=== PATIENT | male | born 1995 | race Caucasian/White ===

== ENCOUNTER 2016-09-23 22:32 | Emergency (ER) | payer OTHER ==
[~2016-09-23] VITALS: Ht 180.3 cm; Wt 102.1 kg
[~2016-09-23 22:32] MED LIST: ATARAX,VISTARIL50 MG PO; ATIVAN1 MG PO; BENTYL10 MG PO; DULOXETINE HCL30 MG PO; KEFLEX500 MG PO; LOMOTIL 0.025 M1 TA1 PO; LOPERAMIDE2 MG PO; MOTRIN600 MG PO; PANTOPRAZOLE SO20 MG PO; PAXIL CR25 MG PO; PAXIL20 M1 PO; PEPCID40 MG PO; PRILOSEC20 M1 PO; PROTONIX20 MG PO; TENORMIN25 M1 PO; TENORMIN25 MG PO; TOPROL XL25 MG PO; TRAZODONE100 MG PO; VISTARIL25 M2 PO; VISTARIL50 MG PO; XANAX0.25 MG PO; ZANTAC 300300 MG PO; ZANTAC150 MG PO; ZOFRAN ODT4 MG SL; Zofran4 MG PO; [UNRECOGNIZED DRUG - REMARK]
[2016-09-23 22:35] VITALS: BP 146/82
[2016-09-23] MEDS ORDERED: ATIVAN1 MG PO (22:56)
[2016-10-17] MEDS ORDERED: CLARITIN10 MG PO (16:44)
[2016-10-17] MEDS ORDERED: FLONASE ALLERG9.9 ML NAS (16:44)
[2016-10-17] MEDS ORDERED: ROBITUSSIN AC 110 ML PO (16:44)
[2016-10-17] MEDS ORDERED: PREDNISONE10 MG PO (16:44)
== END 2016-09-23 23:06 | disposition home or self-care (01) ==
LOC: ED 22:32
DX: F41.0 Panic disorder [episodic paroxysmal anxiety] (principal); I10 Essential (primary) hypertension; I47.1 Supraventricular tachycardia; F17.200 Nicotine dependence, unspecified, uncomplicated; F12.10 Cannabis abuse, uncomplicated; Z90.49 Acquired absence of other specified parts of digestive tract

== ENCOUNTER → 2017-08-18 | Outpatient (CLI) | payer OTHER ==
[~2017-08-18] MED LIST changes: +CLARITIN10 MG PO; +FLONASE ALLERG9.9 ML NAS; +PREDNISONE10 MG PO; +ROBITUSSIN AC 110 ML PO
--- NOTE | ~2017-08-18 | HM ---
[place], [place] HOLTER MONITOR REPORT NAME: SALLY AGUILA UNIT #: [id number] ROOM: DOCTOR: BIJU MARMOLEJO [facility] BIRTHDATE: [birth year] DOS: 08/21/2017 FINDINGS: 1. Sinus rhythm. 2. Sinus tachycardia. 3. Sinus bradycardia, but bradycardia is not consistent and no critical symptoms noted during the short episodes of bradycardia, but no conduction abnormalities noted. No extreme variation noted. Holter monitor appears to have fairly benign. However, there was episode of sinus bradycardia, not associated with any significant symptoms. He had one episode of the dizziness while working out as the bradycardia rate of 40 and if the symptoms persist and further documentation may be needed and the consideration also may be given for a loop recorder for further documentation. We will follow the patient in the office. HAZEL IVY MD CM:HOLTER:HOLTER MONITOR REPORT 1 4 HAZEL IVY MD [facility]
== END | disposition home or self-care (01) ==
LOC: CARD 10:00
DX: R00.2 Palpitations (principal); R00.0 Tachycardia, unspecified

== ENCOUNTER → 2018-02-26 | Outpatient (CLI) | payer OTHER ==
[~2018-02-26] MED LIST changes: +CATAPRES0.2 M1 PO; +KEFLEX500 M1 PO; +NAPROSYN500 MG PO; +SINEQUAN25 MG PO; +WELLBUTRIN SR150 MG PO; +ZOFRAN4 MG PO
--- NOTE | ~2018-02-26 | ST ---
[place], [place] EXERCISE STRESS TEST REPORT NAME: SALLY AGUILA UNIT #: [id number] ROOM: DOCTOR: BIJU MARMOLEJO [facility]EL BIRTHDATE: [birth year] DOS: 02/26/2018 The patient underwent a stress test on stage 4 Umesh protocol up to 14 METs and up to 90% predicted heart rate of 167. No ischemic changes in the EKG. No complication noted. Isotope was injected. Exercised for a minute after injecting the isotope and myocardial perfusion scan to follow. No electrolyte changes for myocardial ischemia noted. HAZEL IVY MD CM:STRESS:EXERCISE STRESS TEST REPORT [id number] HAZEL IVY MD [facility]
== END | disposition home or self-care (01) ==
LOC: CARD 00:35
DX: R07.9 Chest pain, unspecified (principal)

== ENCOUNTER 2018-03-23 17:26 | Emergency (ER) | payer OTHER ==
[~2018-03-23] VITALS: Ht 182.8 cm; Wt 103.4 kg
[~2018-03-23 17:26] MED LIST changes: -KEFLEX500 M1 PO; -NAPROSYN500 MG PO; -ZOFRAN4 MG PO
[2018-03-23 17:28] VITALS: BP 136/58
[2018-03-23] MEDS ORDERED: KEFLEX500 M1 PO (17:37)
[2018-03-23] MEDS ORDERED: ZOFRAN4 MG PO (17:37)
[2018-03-23] MEDS ORDERED: NAPROSYN500 MG PO (17:37)
== END 2018-03-23 17:44 | disposition home or self-care (01) ==
LOC: ED 17:26
DX: Z48.01 Encounter for change or removal of surgical wound dressing (principal); R03.0 Elevated blood-pressure reading, without diagnosis of hypertension; F17.200 Nicotine dependence, unspecified, uncomplicated; Z79.899 Other long term (current) drug therapy; Z86.14 Personal history of Methicillin resistant Staphylococcus aureus infection

== ENCOUNTER 2019-05-16 11:41 | Emergency (ER) | payer OTHER ==
[~2019-05-16] VITALS: Wt 104.3 kg
[~2019-05-16 11:41] MED LIST changes: +KEFLEX500 M1 PO; +NAPROSYN500 MG PO; +ZOFRAN4 MG PO
[2019-05-16 11:43] VITALS: BP 126/77
[2019-05-16] MEDS ORDERED: NORCO 5-325 TA1 EACH PO (13:26)
[2019-05-16] MEDS ORDERED: ULTRAM50 MG PO (13:31)
== END 2019-05-16 14:41 | disposition home or self-care (01) ==
LOC: ED 11:41
DX: S62.396A Other fracture of fifth metacarpal bone, right hand, initial encounter for closed fracture (principal); F17.200 Nicotine dependence, unspecified, uncomplicated; Z79.899 Other long term (current) drug therapy; Z90.49 Acquired absence of other specified parts of digestive tract; V00.131A Fall from skateboard, initial encounter; Y93.51 Activity, roller skating (inline) and skateboarding; Y92.89 Other specified places as the place of occurrence of the external cause; Y99.8 Other external cause status

== ENCOUNTER → 2019-07-30 | Outpatient (CLI) | payer OTHER ==
[~2019-07-30] MED LIST changes: +NORCO 5-325 TA1 EACH PO; +ULTRAM50 MG PO
== END | disposition home or self-care (01) ==
LOC: RAD 13:05
DX: M25.561 Pain in right knee (principal)

== ENCOUNTER 2019-11-16 19:38 | Emergency (ER) | payer OTHER ==
[~2019-11-16] VITALS: Ht 154.9 cm; Wt 95.3 kg
[2019-11-16 19:44] VITALS: BP 111/64
[2019-11-16 20:09] LABS: BASO # 0.1 10*3/uL (0.0-0.1); BASO % 0.6 % (0.0-1.0); EOS # 0.1 10*3/uL (0.0-0.4); EOS % 0.8 % (1.0-4.0); HEMATOCRIT 49.2 % (42.0-52.0); HEMOGLOBIN 17.6 g/dl (14.0-18.0); LYMPH # 2.1 10*3/uL (1.3-4.4); LYMPH % 24.5 % (27.0-41.0); MEAN CELL VOLUME 87.1 fl (80.0-94.0); MEAN CORPUSCULAR HGB 31.2 pg (27.0-31.0); MEAN CORPUSCULAR HGB CONC 35.8 g/dl (33.0-37.0); MEAN PLATELET VOLUME 11.9 fl (9.6-12.3); MONO # 0.6 10*3/uL (0.1-1.0); MONO % 7.1 % (3.0-9.0); NEUT # 5.7 10*3/uL (2.3-7.9); NEUT % 66.8 % (47.0-73.0); PLATELET COUNT AUTOMATED 182 10*3/uL (130-400); RED BLOOD COUNT 5.65 10*6/uL (4.50-5.90); WHITE BLOOD COUNT 8.5 10*3/uL (4.8-10.8)
[2019-11-16 20:26] LABS: ALBUMIN 4.6 gm/dl (3.1-4.5); ALKALINE PHOSPHATASE 88 U/L (45-117); BUN 12 mg/dl (7-24); CHLORIDE 106 mmol/L (98-107); CREATININE 1.08 mg/dL (0.70-1.30); POTASSIUM 3.3 mmol/L (3.5-5.1); SGOT/AST 17 IU/L (3-35); SGPT/ALT 25 U/L (12-78); SODIUM 138 mmol/L (136-145); TOTAL PROTEIN 7.8 gm/dL (6.4-8.2)
[2019-11-16 20:27] LABS: ACETAMINOPHEN (TYLENOL) < 5.0 ug/ml (10-30); ETHYL ALCOHOL < 3.0 mg/dl (<3); TROPONIN I < 0.015 ng/ml (<0.045)
[2019-11-16 21:48] LABS: BILIRUBIN NEGATIVE (NEGATIVE); BLOOD TRACE-INTACT (NEGATIVE); CLARITY CLEAR (CLEAR); COLOR YELLOW (YELLOW); GLUCOSE NEGATIVE (NEGATIVE); KETONE 1+ (NEGATIVE); LEUKO ESTERASE TRACE (NEGATIVE); NITRITE NEGATIVE (NEGATIVE); SPECIFIC GRAVITY 1.025 (1.005-1.030); UROBILINOGEN 0.2 E.U./dl (0.2-1.0)
[2019-11-16 21:55] LABS: URINE AMPHETAMINES < 1000 (1000ng/ml); URINE BARBITURATES < 200 (200ng/ml); URINE BENZODIAZEPINES < 200 (200ng/ml); URINE CANNABINOIDS (THC) > 50 (50ng/ml); URINE COCAINE < 300 (300ng/ml); URINE METHADONE < 300 (300ng/ml); URINE OPIATES < 300 (300ng/ml)
[2019-11-16 22:00] LABS: URINE PHENCYCLIDINE < 25 (25ng/ml)
[2019-11-16 22:12] LABS: BACTERIA 1+; MUCOUS 4+
== END 2019-11-16 23:32 | disposition home or self-care (01) ==
LOC: ED 19:38
PROVIDERS: Nurse Practitioner Family
DX: F41.9 Anxiety disorder, unspecified (principal); R11.2 Nausea with vomiting, unspecified; K21.9 Gastro-esophageal reflux disease without esophagitis; F32.9 Major depressive disorder, single episode, unspecified; F17.200 Nicotine dependence, unspecified, uncomplicated; Z79.899 Other long term (current) drug therapy

== ENCOUNTER 2019-11-17 18:35 | Emergency (ER) | payer OTHER ==
[~2019-11-17] VITALS: Ht 180.3 cm; Wt 93.4 kg
[2019-11-17 19:04] VITALS: BP 110/66
[2019-11-17 19:42] LABS: BASO % 0.5 % (0.0-1.0); EOS # 0.1 10*3/uL (0.0-0.4); EOS % 1.2 % (1.0-4.0); HEMATOCRIT 45.7 % (42.0-52.0); LYMPH # 2.7 10*3/uL (1.3-4.4); LYMPH % 33.5 % (27.0-41.0); MEAN CELL VOLUME 88.7 fl (80.0-94.0); MEAN CORPUSCULAR HGB 31.1 pg (27.0-31.0); MEAN PLATELET VOLUME 12.3 fl (9.6-12.3); MONO # 0.7 10*3/uL (0.1-1.0); MONO % 8.7 % (3.0-9.0); NEUT # 4.5 10*3/uL (2.3-7.9); PLATELET COUNT AUTOMATED 153 10*3/uL (130-400); RED BLOOD COUNT 5.15 10*6/uL (4.50-5.90); RED CELL DISTRI WIDTH 12.3 % (0-14.5)
[2019-11-17 19:59] LABS: ALBUMIN 4.1 gm/dl (3.1-4.5); ALKALINE PHOSPHATASE 75 U/L (45-117); BUN 12 mg/dl (7-24); CHLORIDE 109 mmol/L (98-107); CREATININE 1.09 mg/dL (0.70-1.30); LIPASE 66 U/L (73-393); POTASSIUM 3.4 mmol/L (3.5-5.1); SGOT/AST 12 IU/L (3-35); SGPT/ALT 24 U/L (12-78); SODIUM 142 mmol/L (136-145); TOTAL PROTEIN 7.2 gm/dL (6.4-8.2)
== END 2019-11-17 22:00 | disposition home or self-care (01) ==
LOC: ED 18:35
PROVIDERS: Internal Medicine
DX: K52.9 Noninfective gastroenteritis and colitis, unspecified (principal); F41.9 Anxiety disorder, unspecified; I10 Essential (primary) hypertension; F17.200 Nicotine dependence, unspecified, uncomplicated; K21.9 Gastro-esophageal reflux disease without esophagitis; F32.9 Major depressive disorder, single episode, unspecified; Z79.899 Other long term (current) drug therapy; Z90.49 Acquired absence of other specified parts of digestive tract

== ENCOUNTER 2020-03-03 08:22 | Emergency (ER) | payer OTHER ==
[~2020-03-03] VITALS: Ht 177.8 cm; Wt 85.3 kg
[2020-03-03 08:32] VITALS: BP 112/68
[2020-03-03 09:00] LABS: BASO % 0.3 % (0.0-1.0); EOS # 0.1 10*3/uL (0.0-0.4); EOS % 1.2 % (1.0-4.0); HEMATOCRIT 46.9 % (42.0-52.0); LYMPH # 1.6 10*3/uL (1.3-4.4); LYMPH % 17.7 % (27.0-41.0); MEAN CELL VOLUME 88.7 fl (80.0-94.0); MEAN CORPUSCULAR HGB 30.8 pg (27.0-31.0); MEAN CORPUSCULAR HGB CONC 34.8 g/dl (33.0-37.0); MEAN PLATELET VOLUME 12.1 fl (9.6-12.3); MONO # 0.4 10*3/uL (0.1-1.0); MONO % 4.9 % (3.0-9.0); NEUT # 6.7 10*3/uL (2.3-7.9); NEUT % 75.6 % (47.0-73.0); PLATELET COUNT AUTOMATED 161 10*3/uL (130-400); RED BLOOD COUNT 5.29 10*6/uL (4.50-5.90); RED CELL DISTRI WIDTH 12.5 % (0-14.5); WHITE BLOOD COUNT 8.9 10*3/uL (4.8-10.8)
[2020-03-03 09:14] LABS: ALBUMIN 4.3 gm/dl (3.1-4.5); ALKALINE PHOSPHATASE 98 U/L (45-117); BUN 9 mg/dl (7-24); CHLORIDE 110 mmol/L (98-107); CREATININE 1.05 mg/dL (0.70-1.30); LIPASE 35 U/L (73-393); POTASSIUM 3.6 mmol/L (3.5-5.1); SGOT/AST 15 IU/L (3-35); SGPT/ALT 21 U/L (12-78); SODIUM 141 mmol/L (136-145); TOTAL PROTEIN 7.5 gm/dL (6.4-8.2)
[2020-03-03] MEDS ORDERED: ZOFRAN4 MG PO (10:06)
[2020-03-03] MEDS ORDERED: IMODIUM A-D2 M2 PO (10:06)
[2020-03-03] MEDS ORDERED: VISTARIL50 MG PO (16:18)
[2020-03-03] MEDS ORDERED: TOPROL XL25 MG PO (16:18)
[2020-03-03] MEDS ORDERED: NEURONTIN300 MG PO (16:19)
[2020-03-03] MEDS ORDERED: ATIVAN1 MG PO (16:19)
[2020-03-03] MEDS ORDERED: LAMOTRIGINE25 M1 PO (16:20)
== END 2020-03-03 10:16 | disposition home or self-care (01) ==
LOC: ED 08:22
PROVIDERS: Emergency Medicine
DX: K52.9 Noninfective gastroenteritis and colitis, unspecified (principal); F41.9 Anxiety disorder, unspecified; F32.9 Major depressive disorder, single episode, unspecified; K21.9 Gastro-esophageal reflux disease without esophagitis; F17.200 Nicotine dependence, unspecified, uncomplicated; Z79.899 Other long term (current) drug therapy

== ENCOUNTER 2020-03-03 16:09 | Emergency (ER) | payer OTHER ==
[~2020-03-03] VITALS: Ht 177.8 cm; Wt 85.3 kg
[~2020-03-03 16:09] MED LIST changes: +IMODIUM A-D2 M2 PO
[2020-03-03 16:15] VITALS: BP 125/71
[2020-03-03] MEDS ORDERED: VISTARIL50 MG PO (16:18)
[2020-03-03] MEDS ORDERED: TOPROL XL25 MG PO (16:18)
[2020-03-03] MEDS ORDERED: NEURONTIN300 MG PO (16:19)
[2020-03-03] MEDS ORDERED: ATIVAN1 MG PO (16:19)
[2020-03-03] MEDS ORDERED: LAMOTRIGINE25 M1 PO (16:20)
== END 2020-03-03 20:20 | disposition home or self-care (01) ==
LOC: ED 16:09
DX: K52.9 Noninfective gastroenteritis and colitis, unspecified (principal); F41.9 Anxiety disorder, unspecified; I10 Essential (primary) hypertension; K21.9 Gastro-esophageal reflux disease without esophagitis; F32.9 Major depressive disorder, single episode, unspecified; Z79.899 Other long term (current) drug therapy

== ENCOUNTER 2020-03-06 12:47 | Emergency (ER) | payer OTHER ==
[~2020-03-06] VITALS: Wt 83.5 kg
[~2020-03-06 12:47] MED LIST changes: +LAMOTRIGINE25 M1 PO; +NEURONTIN300 MG PO
[2020-03-06 12:52] VITALS: BP 120/64
[2020-03-06 13:26] LABS: BASO % 0.5 % (0.0-1.0); EOS # 0.1 10*3/uL (0.0-0.4); EOS % 1.1 % (1.0-4.0); HEMATOCRIT 45.1 % (42.0-52.0); LYMPH # 1.8 10*3/uL (1.3-4.4); LYMPH % 28.9 % (27.0-41.0); MEAN CELL VOLUME 89.3 fl (80.0-94.0); MEAN CORPUSCULAR HGB 30.5 pg (27.0-31.0); MEAN CORPUSCULAR HGB CONC 34.1 g/dl (33.0-37.0); MEAN PLATELET VOLUME 12.4 fl (9.6-12.3); MONO # 0.5 10*3/uL (0.1-1.0); MONO % 7.4 % (3.0-9.0); NEUT # 3.9 10*3/uL (2.3-7.9); NEUT % 61.8 % (47.0-73.0); PLATELET COUNT AUTOMATED 146 10*3/uL (130-400); RED BLOOD COUNT 5.05 10*6/uL (4.50-5.90); RED CELL DISTRI WIDTH 12.3 % (0-14.5); WHITE BLOOD COUNT 6.4 10*3/uL (4.8-10.8)
[2020-03-06 13:36] LABS: BILIRUBIN NEGATIVE (NEGATIVE); CLARITY CLEAR (CLEAR); COLOR YELLOW (YELLOW); GLUCOSE NEGATIVE (NEGATIVE); SPECIFIC GRAVITY 1.015 (1.005-1.030)
[2020-03-06 13:37] LABS: BACTERIA 1+; BLOOD TRACE-INTACT (NEGATIVE); EPITHELIAL CELLS 0-2; KETONE 3+ (NEGATIVE); LEUKO ESTERASE NEGATIVE (NEGATIVE); MUCOUS 2+; NITRITE NEGATIVE (NEGATIVE)
[2020-03-06 13:41] LABS: ALBUMIN 4.1 gm/dl (3.1-4.5); ALKALINE PHOSPHATASE 104 U/L (45-117); BUN 6 mg/dl (7-24); CHLORIDE 108 mmol/L (98-107); CREATININE 0.93 mg/dL (0.70-1.30); LIPASE 38 U/L (73-393); POTASSIUM 3.5 mmol/L (3.5-5.1); SGOT/AST 31 IU/L (3-35); SGPT/ALT 80 U/L (12-78); SODIUM 142 mmol/L (136-145)
[2020-03-06] MEDS ORDERED: ZOFRAN4 MG PO (15:55)
[2020-03-06] MEDS ORDERED: PROTONIX20 MG PO (15:55)
[2020-03-06] MEDS ORDERED: FLAGYL500 MG PO (15:55)
== END 2020-03-06 16:08 | disposition home or self-care (01) ==
LOC: ED 12:47
PROVIDERS: Nurse Practitioner Family
DX: K29.70 Gastritis, unspecified, without bleeding (principal); K52.9 Noninfective gastroenteritis and colitis, unspecified; K21.9 Gastro-esophageal reflux disease without esophagitis; R11.10 Vomiting, unspecified; Z79.899 Other long term (current) drug therapy; Z87.891 Personal history of nicotine dependence

== ENCOUNTER 2020-03-07 18:15 | Observation (INO) | payer OTHER ==
[~2020-03-07] VITALS: Ht 177.8 cm; Wt 84.5 kg
[~2020-03-07 18:15] MED LIST changes: +FLAGYL500 MG PO
[2020-03-07 18:23] VITALS: BP 123/55
[2020-03-07 19:38] LABS: BASO # 0.1 10*3/uL (0.0-0.1); BASO % 0.7 % (0.0-1.0); EOS # 0.2 10*3/uL (0.0-0.4); EOS % 2.3 % (1.0-4.0); HEMATOCRIT 41.9 % (42.0-52.0); LYMPH # 2.1 10*3/uL (1.3-4.4); LYMPH % 29.4 % (27.0-41.0); MEAN CELL VOLUME 89.9 fl (80.0-94.0); MEAN CORPUSCULAR HGB 31.1 pg (27.0-31.0); MEAN CORPUSCULAR HGB CONC 34.6 g/dl (33.0-37.0); MEAN PLATELET VOLUME 12.4 fl (9.6-12.3); MONO # 0.6 10*3/uL (0.1-1.0); MONO % 8.4 % (3.0-9.0); NEUT # 4.2 10*3/uL (2.3-7.9); NEUT % 59.1 % (47.0-73.0); PLATELET COUNT AUTOMATED 134 10*3/uL (130-400); RED BLOOD COUNT 4.66 10*6/uL (4.50-5.90); RED CELL DISTRI WIDTH 12.2 % (0-14.5); WHITE BLOOD COUNT 7.1 10*3/uL (4.8-10.8)
[2020-03-07 19:53] LABS: ALBUMIN 3.7 gm/dl (3.1-4.5); ALKALINE PHOSPHATASE 86 U/L (45-117); BUN 9 mg/dl (7-24); CHLORIDE 110 mmol/L (98-107); CREATININE 0.87 mg/dL (0.70-1.30); LIPASE 70 U/L (73-393); POTASSIUM 3.3 mmol/L (3.5-5.1); SGOT/AST 15 IU/L (3-35); SGPT/ALT 54 U/L (12-78); SODIUM 141 mmol/L (136-145); TOTAL PROTEIN 6.4 gm/dL (6.4-8.2)
--- NOTE | 2020-03-07 20:12 | NUR ---
PAIN IS BETTER AFTER REGLAN AND PROTONIX. WILL CONTINUE TO MONITOR.
[2020-03-07 20:27] VITALS: BP 115/60
--- NOTE | 2020-03-07 21:47 | NUR ---
PAIN HAS RETURNED. DR PEREZ AWARE.
[2020-03-07 23:25] VITALS: BP 106/52
[2020-03-07 23:35] LABS: BILIRUBIN NEGATIVE (NEGATIVE); BLOOD NEGATIVE (NEGATIVE); CLARITY CLEAR (CLEAR); COLOR YELLOW (YELLOW); GLUCOSE NEGATIVE (NEGATIVE); KETONE 2+ (NEGATIVE); LEUKO ESTERASE NEGATIVE (NEGATIVE); NITRITE NEGATIVE (NEGATIVE); PH 7.5 (5.0-9.0); UROBILINOGEN 0.2 E.U./dl (0.2-1.0)
[2020-03-07 23:45] VITALS: BP 126/69
--- NOTE | 2020-03-07 23:45 | NUR ---
A 25, admitted to , under the services of CHUNG Rosen DO with a diagnosis of INTRACTABLE VOMITING,DEHYDRATION PATIENT IS AN OBSERVATION. Chief complaint is FOR 5 DAYS HAS HAD N/V/ DIARRHEA. Patient arrived via wheel chair from ER. Monitor applied. Initial assessment completed. Vital signs taken and recorded. CHUNG ROSEN DO notified of admission to the 4E unit. Orders received. See assessment for past medical history, medications and allergies. Patient and/or family oriented to unit. [facility] visitation policy reviewed. Clothing/patient valuable form completed. JOHNSON GUTIERREZ
[2020-03-07 23:49] LABS: EPITHELIAL CELLS 31-40
[2020-03-07 23:50] LABS: BACTERIA 1+
[2020-03-08 02:35] VITALS: BP 112/70
--- NOTE | 2020-03-08 02:35 | NUR ---
C/O SHIVERING BECAUSE ROOM COLD AND IT'S "MAKING MY CHEST HURT" VITAL SIGNS TAKEN AND RECORDED. HEAT TURNED UP IN ROOM WITH WARM BLANKETS COVERED PATIENT. PATIENT SAID PAIN FELT MORE MUSCLE IN CHEST THAN HEART".
--- NOTE | 2020-03-08 02:40 | NUR ---
ATIVAN GIVEN PER ORDER FOR ANXIETY PER PT. REQUEST. SEE MAR.
--- NOTE | 2020-03-08 02:43 | NUR ---
C/O NAUSEA ZOFRAN GIVEN PER ORDER. SEE MAR
--- NOTE | 2020-03-08 03:40 | NUR ---
SLEEPING ATIVAN AND ZOFRAN EFFECTIVE FOR ANXIETY AND NAUSEA.
--- NOTE | 2020-03-08 03:49 | NUR ---
24 HR chart check completed.
[2020-03-08 06:19] LABS: BASO % 0.4 % (0.0-1.0); EOS # 0.1 10*3/uL (0.0-0.4); EOS % 1.4 % (1.0-4.0); HEMATOCRIT 39.5 % (42.0-52.0); LYMPH # 1.6 10*3/uL (1.3-4.4); LYMPH % 27.3 % (27.0-41.0); MEAN CELL VOLUME 91.6 fl (80.0-94.0); MEAN CORPUSCULAR HGB 30.6 pg (27.0-31.0); MEAN CORPUSCULAR HGB CONC 33.4 g/dl (33.0-37.0); MEAN PLATELET VOLUME 12.9 fl (9.6-12.3); MONO # 0.4 10*3/uL (0.1-1.0); MONO % 7.4 % (3.0-9.0); NEUT # 3.6 10*3/uL (2.3-7.9); NEUT % 63.3 % (47.0-73.0); PLATELET COUNT AUTOMATED 116 10*3/uL (130-400); RED BLOOD COUNT 4.31 10*6/uL (4.50-5.90); RED CELL DISTRI WIDTH 12.5 % (0-14.5); WHITE BLOOD COUNT 5.7 10*3/uL (4.8-10.8)
--- NOTE | 2020-03-08 06:26 | NUR ---
awake had mouthful emesis with cough clear with few very thin red flecks noted. No c/o chest pain voiced at this time.
[2020-03-08 06:37] LABS: ALBUMIN 3.3 gm/dl (3.1-4.5); ALKALINE PHOSPHATASE 80 U/L (45-117); BUN 8 mg/dl (7-24); CHLORIDE 112 mmol/L (98-107); CREATININE 0.83 mg/dL (0.70-1.30); POTASSIUM 3.7 mmol/L (3.5-5.1); SGOT/AST 15 IU/L (3-35); SGPT/ALT 46 U/L (12-78); SODIUM 144 mmol/L (136-145); TOTAL PROTEIN 5.8 gm/dL (6.4-8.2)
[2020-03-08 08:00] VITALS: BP 110/66
--- NOTE | 2020-03-08 09:00 | NUR ---
Director Of Emergency Nursing in to talk to patient. Patient states lives at home with family. There are no steps in the home. Physician: soraida bello [facility]acy: [facility] Home health services: none Patient's level of ADLs: INDEPENDENT Patient has working utilities: all working DME: none Follow-up physician's appointment after d/c: will be made by hospitalist nurse director upon discharge Does patient want to access PORTAL?: no Discharge plan discussed with patient, he states he lives at home with family, he is independent in adls and ambulation, he states he will return home when discharged, patient denies any home needs, case management will follow. ABRAN LOMAX
[2020-03-08 12:00] VITALS: BP 112/70
[2020-03-08 16:00] VITALS: BP 110/68
--- NOTE | 2020-03-08 16:00 | NUR ---
PER PATIENT, HE TOLERATED FULL LIQUIDS FINE. PT STATES THAT HE WANTS TO GO HOME. NOTIFIED .
--- NOTE | 2020-03-08 17:19 | NUR ---
Discharge instructions reviewed with patient/family. Patient receptive and verbalizes understanding. Follow-up care arranged. Written instructions given to patient/family. [place] DISCONTINUED. PATIENT AMBULATORY OFF FLOOR. CHACHA ORTIZ
== END 2020-03-08 17:19 | disposition home or self-care (01) ==
LOC: ED 18:15 → EDHOLD 23:10 → 4E 23:10
PROVIDERS: Emergency Medicine; Student in an Organized Health Care Education/Training Program; ADMIT Internal Medicine
DX: R11.10 Vomiting, unspecified (principal); E86.0 Dehydration; K52.9 Noninfective gastroenteritis and colitis, unspecified; E87.6 Hypokalemia; E87.8 Other disorders of electrolyte and fluid balance, not elsewhere classified; R00.1 Bradycardia, unspecified; R73.9 Hyperglycemia, unspecified; F12.10 Cannabis abuse, uncomplicated; F17.210 Nicotine dependence, cigarettes, uncomplicated

== ENCOUNTER → 2020-05-24 | Outpatient (CLI) | payer OTHER ==
[2020-05-24 10:37] LABS: BASO % 0.6 % (0.0-1.0); EOS # 0.4 10*3/uL (0.0-0.4); HEMATOCRIT 45.8 % (42.0-52.0); LYMPH # 2.1 10*3/uL (1.3-4.4); LYMPH % 30.5 % (27.0-41.0); MEAN CELL VOLUME 90.5 fl (80.0-94.0); MEAN CORPUSCULAR HGB CONC 34.3 g/dl (33.0-37.0); MEAN PLATELET VOLUME 11.1 fl (9.6-12.3); MONO # 0.5 10*3/uL (0.1-1.0); MONO % 7.3 % (3.0-9.0); NEUT # 3.9 10*3/uL (2.3-7.9); NEUT % 56.5 % (47.0-73.0); PLATELET COUNT AUTOMATED 165 10*3/uL (130-400); RED BLOOD COUNT 5.06 10*6/uL (4.50-5.90); RED CELL DISTRI WIDTH 12.2 % (0-14.5)
[2020-05-24 11:07] LABS: ALBUMIN 3.9 gm/dl (3.1-4.5); ALKALINE PHOSPHATASE 85 U/L (45-117); BILIRUBIN, DIRECT 0.3 mg/dL (0.0-0.2); BUN 10 mg/dl (7-24); CHLORIDE 110 mmol/L (98-107); CREATININE 0.97 mg/dL (0.70-1.30); POTASSIUM 3.9 mmol/L (3.5-5.1); SGOT/AST 15 IU/L (3-35); SGPT/ALT 22 U/L (12-78); SODIUM 142 mmol/L (136-145); TOTAL PROTEIN 7.3 gm/dL (6.4-8.2); VALPROIC ACID (DEPAKENE) 30.3 ug/ml (50-100)
[2020-05-24 11:13] LABS: THYROID STIM HORMONE (HS) 0.639 uIU/ml (0.358-4.75)
== END | disposition home or self-care (01) ==
LOC: LAB 09:37
DX: Z79.899 Other long term (current) drug therapy (principal)

== ENCOUNTER 2020-09-28 09:34 | Emergency (ER) | payer OTHER ==
[~2020-09-28] VITALS: Wt 83.9 kg
[2020-09-28 10:01] LABS: BASO % 0.1 % (0.0-1.0); EOS # 0.1 10*3/uL (0.0-0.4); EOS % 1.6 % (1.0-4.0); HEMATOCRIT 46.3 % (42.0-52.0); LYMPH # 2.5 10*3/uL (1.3-4.4); LYMPH % 30.4 % (27.0-41.0); MEAN CELL VOLUME 87.4 fl (80.0-94.0); MEAN CORPUSCULAR HGB 29.8 pg (27.0-31.0); MEAN CORPUSCULAR HGB CONC 34.1 g/dl (33.0-37.0); MEAN PLATELET VOLUME 11.3 fl (9.6-12.3); MONO # 0.6 10*3/uL (0.1-1.0); MONO % 7.5 % (3.0-9.0); NEUT # 4.9 10*3/uL (2.3-7.9); NEUT % 60.2 % (47.0-73.0); PLATELET COUNT AUTOMATED 193 10*3/uL (130-400); RED CELL DISTRI WIDTH 11.9 % (0-14.5); WHITE BLOOD COUNT 8.1 10*3/uL (4.8-10.8)
[2020-09-28 10:15] LABS: ALBUMIN 4.2 gm/dl (3.1-4.5); ALKALINE PHOSPHATASE 81 U/L (45-117); BUN 10 mg/dl (7-24); CHLORIDE 108 mmol/L (98-107); CREATININE 0.94 mg/dL (0.70-1.30); LIPASE 52 U/L (73-393); POTASSIUM 3.6 mmol/L (3.5-5.1); SGOT/AST 12 IU/L (3-35); SGPT/ALT 24 U/L (12-78); SODIUM 138 mmol/L (136-145)
[2020-09-28 12:00] VITALS: BP 112/71
[2020-09-28 13:42] LABS: BILIRUBIN Negative (Negative); BLOOD Negative (Negative); CLARITY Clear (Clear); COLOR Orange (Yellow); GLUCOSE Negative (Negative); KETONE 1+ (Negative); LEUKO ESTERASE Negative (Negative); NITRITE Negative (Negative); PH 5.5 (4.5-8.0); SPECIFIC GRAVITY >= 1.030 (1.001-1.030)
[2020-09-28 14:04] LABS: EPITHELIAL CELLS 0-2
== END 2020-09-28 14:08 | disposition home or self-care (01) ==
LOC: ED 09:34
PROVIDERS: Emergency Medicine
DX: R10.9 Unspecified abdominal pain (principal); Z90.49 Acquired absence of other specified parts of digestive tract; Z79.899 Other long term (current) drug therapy

== ENCOUNTER 2021-12-24 15:05 | Emergency (ER) | payer OTHER ==
[2021-12-25] MEDS ORDERED: QUETIAPINE FUM100 M3 PO (23:42)
[2021-12-25] MEDS ORDERED: HYDROXYZINE PAM25 M1 PO (23:43)
[2021-12-25] MEDS ORDERED: VIBRAMYCIN100 MG PO (23:43)
== END 2021-12-24 15:22 | disposition left against medical advice (07) ==
LOC: ED 15:05
DX: Z53.21 Procedure and treatment not carried out due to patient leaving prior to being seen by health care provider (principal)

== ENCOUNTER 2021-12-25 23:34 | Emergency (ER) | payer OTHER ==
[~2021-12-25] VITALS: Ht 180.3 cm; Wt 81.6 kg
[2021-12-25] MEDS ORDERED: QUETIAPINE FUM100 M3 PO (23:42)
[2021-12-25] MEDS ORDERED: VIBRAMYCIN100 MG PO (23:43)
[2021-12-25] MEDS ORDERED: HYDROXYZINE PAM25 M1 PO (23:43)
[2021-12-25 23:45] VITALS: BP 121/52
== END 2021-12-26 00:51 | disposition home or self-care (01) ==
LOC: ED 23:34
DX: S63.501A Unspecified sprain of right wrist, initial encounter (principal); Z79.899 Other long term (current) drug therapy; Z90.49 Acquired absence of other specified parts of digestive tract; Z87.891 Personal history of nicotine dependence; W18.39XA Other fall on same level, initial encounter; Y93.89 Activity, other specified; Y92.89 Other specified places as the place of occurrence of the external cause; Y99.8 Other external cause status

== ENCOUNTER 2022-08-28 22:45 | Emergency (ER) | payer OTHER ==
[~2022-08-28] VITALS: Ht 180.3 cm; Wt 81.6 kg
[~2022-08-28 22:45] MED LIST changes: +HYDROXYZINE PAM25 M1 PO; +QUETIAPINE FUM100 M3 PO; +VIBRAMYCIN100 MG PO
[2022-08-28 23:24] VITALS: BP 116/53
[2022-08-28] MEDS ORDERED: PENICILLIN VK500 MG PO (23:27)
== END 2022-08-28 23:33 | disposition home or self-care (01) ==
LOC: ED 22:45
DX: K04.7 Periapical abscess without sinus (principal); Z79.899 Other long term (current) drug therapy; Z90.49 Acquired absence of other specified parts of digestive tract; Z87.891 Personal history of nicotine dependence

== ENCOUNTER 2022-10-01 16:37 | Emergency (ER) | payer OTHER ==
[~2022-10-01] VITALS: Ht 180.3 cm; Wt 77.1 kg
[~2022-10-01 16:37] MED LIST changes: +PENICILLIN VK500 MG PO
[2022-10-01 16:46] VITALS: BP 133/74
[2022-10-01] MEDS ORDERED: Cleocin150 MG PO (16:47)
[2022-10-01] MEDS ORDERED: NAPROSYN500 MG PO (18:07)
[2022-10-01] MEDS ORDERED: ZANAFLEX4 MG PO (18:07)
== END 2022-10-01 19:12 | disposition home or self-care (01) ==
LOC: ED 16:37
DX: S20.212A Contusion of left front wall of thorax, initial encounter (principal); Z79.899 Other long term (current) drug therapy; Z90.49 Acquired absence of other specified parts of digestive tract; F17.200 Nicotine dependence, unspecified, uncomplicated; X50.0XXA Overexertion from strenuous movement or load, initial encounter; Y93.89 Activity, other specified; Y92.89 Other specified places as the place of occurrence of the external cause; Y99.8 Other external cause status

== ENCOUNTER → 2022-10-23 | Outpatient (CLI) | payer OTHER ==
[~2022-10-23] MED LIST changes: +Cleocin150 MG PO; +ZANAFLEX4 MG PO
[2022-10-23 16:37] LABS: FREE T4 1.37 ng/dl (0.89-1.76); THYROID STIM HORMONE (HS) 0.308 uIU/ml (0.550-4.780)
== END | disposition home or self-care (01) ==
LOC: LAB 15:57
PROVIDERS: ATTEND Nurse Practitioner
DX: F41.1 Generalized anxiety disorder (principal)

== ENCOUNTER → 2023-02-04 | Outpatient (CLI) | payer MEDICAID | END | disposition home or self-care (01) | LOC: RAD 14:38 | PROVIDERS: ATTEND Nurse Practitioner Family | DX: R06.02 Shortness of breath (principal); R06.2 Wheezing; R05.9 Cough, unspecified ==

== ENCOUNTER 2023-06-21 13:31 | Emergency (ER) | payer MEDICAID ==
[~2023-06-21] VITALS: Ht 180.3 cm; Wt 77.1 kg
[2023-06-21 14:26] VITALS: BP 128/81
== END 2023-06-21 18:23 | disposition home or self-care (01) ==
LOC: ED 13:31
DX: S62.394A Other fracture of fourth metacarpal bone, right hand, initial encounter for closed fracture (principal); F17.200 Nicotine dependence, unspecified, uncomplicated; Z79.899 Other long term (current) drug therapy; Z90.49 Acquired absence of other specified parts of digestive tract; Y04.2XXA Assault by strike against or bumped into by another person, initial encounter; Y93.89 Activity, other specified; Y92.89 Other specified places as the place of occurrence of the external cause; Y99.8 Other external cause status

== ENCOUNTER 2023-10-20 12:49 | Emergency (ER) | payer MEDICAID ==
[~2023-10-20] VITALS: Ht 180.3 cm; Wt 81.6 kg
[2023-10-20 12:58] VITALS: BP 119/54
[2023-10-20] MEDS ORDERED: Motrin,Rufen800 MG PO (13:50)
[2023-10-20] MEDS ORDERED: Bacitracin Zinc 14 GM TUBE T ONE (13:55)
== END 2023-10-20 14:17 | disposition home or self-care (01) ==
LOC: ED 12:49
DX: S62.307A Unspecified fracture of fifth metacarpal bone, left hand, initial encounter for closed fracture (principal); E78.00 Pure hypercholesterolemia, unspecified; R73.9 Hyperglycemia, unspecified; E87.6 Hypokalemia; F41.9 Anxiety disorder, unspecified; I10 Essential (primary) hypertension; K21.9 Gastro-esophageal reflux disease without esophagitis; F32.A Depression, unspecified; F90.9 Attention-deficit hyperactivity disorder, unspecified type; F12.10 Cannabis abuse, uncomplicated; F17.200 Nicotine dependence, unspecified, uncomplicated; Z90.49 Acquired absence of other specified parts of digestive tract; W22.01XA Walked into wall, initial encounter; Y93.89 Activity, other specified; Y92.89 Other specified places as the place of occurrence of the external cause; Y99.8 Other external cause status

== ENCOUNTER 2024-01-19 09:00 | Emergency (ER) | payer MEDICAID ==
[~2024-01-19] VITALS: Ht 180.3 cm; Wt 90.7 kg
[~2024-01-19 09:00] MED LIST changes: +Motrin,Rufen800 MG PO
[2024-01-19 09:12] VITALS: BP 124/77
[2024-01-19] MEDS ORDERED: CLONAZEPAM1 MG PO (09:16)
[2024-01-19] MEDS ORDERED: ABILIFY2 MG PO (09:16)
[2024-01-19] MEDS ORDERED: AZITHROMYCIN 250 MG TAB PO ONE (09:25)
[2024-01-19 10:49] LABS: BILIRUBIN Negative (Negative); BLOOD Negative (Negative); CLARITY Clear (Clear); COLOR Yellow (Yellow); GLUCOSE Negative (Negative); KETONE Negative (Negative); LEUKO ESTERASE 2+ (Negative); NITRITE Negative (Negative); PH 6.5 (4.5-8.0); UROBILINOGEN 0.2 E.U./dl (0.0-1.0)
[2024-01-19 11:00] LABS: BACTERIA TRACE; EPITHELIAL CELLS 0-2; MUCOUS TRACE; WBC 21-30 wbc/hpf (0-5)
== END 2024-01-19 11:31 | disposition home or self-care (01) ==
LOC: ED 09:00
PROVIDERS: Internal Medicine
DX: R30.0 Dysuria (principal); R39.11 Hesitancy of micturition; Z20.2 Contact with and (suspected) exposure to infections with a predominantly sexual mode of transmission; R10.30 Lower abdominal pain, unspecified; F41.9 Anxiety disorder, unspecified; K21.9 Gastro-esophageal reflux disease without esophagitis; F32.A Depression, unspecified; F90.9 Attention-deficit hyperactivity disorder, unspecified type; Z90.49 Acquired absence of other specified parts of digestive tract; F17.200 Nicotine dependence, unspecified, uncomplicated; F12.10 Cannabis abuse, uncomplicated

== ENCOUNTER 2024-04-17 15:07 | Emergency (ER) | payer MEDICAID ==
[~2024-04-17] VITALS: Ht 180.3 cm; Wt 72.6 kg
[~2024-04-17 15:07] MED LIST changes: +ABILIFY2 MG PO; +CLONAZEPAM1 MG PO
[2024-04-17] MEDS ORDERED: Lidocaine Hydrochloride 15 ML UDC PO STA (15:30)
[2024-04-17] MEDS ORDERED: MG-AL HYDROXIDE/SIMETICONE 30 ML UDC PO STA (15:30)
[2024-04-17] MEDS ORDERED: Dicyclomine Hydrochloride 20 MG/10 ML OSYR PO STA (15:30)
[2024-04-17] MEDS ORDERED: SODIUM CHLORIDE 0.9% 1,000 ML IV ONE (15:30)
[2024-04-17] MEDS ORDERED: Ondansetron Hydrochloride 4 MG/2 ML VIAL IV ONE (15:30)
[2024-04-17 15:58] LABS: BASO % 0.3 % (0.0-1.0); EOS # 0.1 10*3/uL (0.0-0.4); EOS % 0.7 % (1.0-4.0); HEMATOCRIT 44.8 % (42.0-52.0); LYMPH # 2.1 10*3/uL (1.3-4.4); LYMPH % 22.1 % (27.0-41.0); MEAN CELL VOLUME 90.7 fl (80.0-94.0); MEAN CORPUSCULAR HGB 31.4 pg (27.0-31.0); MEAN CORPUSCULAR HGB CONC 34.6 g/dl (33.0-37.0); MEAN PLATELET VOLUME 11.3 fl (9.6-12.3); MONO # 0.7 10*3/uL (0.1-1.0); MONO % 7.1 % (3.0-9.0); NEUT # 6.6 10*3/uL (2.3-7.9); NEUT % 69.6 % (47.0-73.0); PLATELET COUNT AUTOMATED 191 10*3/uL (130-400); RED BLOOD COUNT 4.94 10*6/uL (4.50-5.90); RED CELL DISTRI WIDTH 11.8 % (0-14.5); WHITE BLOOD COUNT 9.5 10*3/uL (4.8-10.8)
[2024-04-17 16:22] LABS: ALKALINE PHOSPHATASE 72 U/L (46-116); BUN 6 mg/dl (9-23); CHLORIDE 105 mmol/L (98-107); LIPASE 23 U/L (12-53); POTASSIUM 3.4 mmol/L (3.4-5.1); SGPT/ALT 18 U/L (5-49); TOTAL PROTEIN 7.1 gm/dL (6.0-8.0)
[2024-04-17 17:29] VITALS: BP 132/72
[2024-04-17] MEDS ORDERED: Ondansetron4 MG PO (17:51)
== END 2024-04-17 17:50 | disposition home or self-care (01) ==
LOC: ED 15:07
PROVIDERS: Internal Medicine
DX: K52.9 Noninfective gastroenteritis and colitis, unspecified (principal); R11.2 Nausea with vomiting, unspecified; F41.9 Anxiety disorder, unspecified; K21.9 Gastro-esophageal reflux disease without esophagitis; F32.A Depression, unspecified; F90.9 Attention-deficit hyperactivity disorder, unspecified type; F12.10 Cannabis abuse, uncomplicated; F17.200 Nicotine dependence, unspecified, uncomplicated; Z90.49 Acquired absence of other specified parts of digestive tract

== ENCOUNTER 2024-06-04 17:30 | Emergency (ER) | payer MEDICAID ==
[~2024-06-04] VITALS: Ht 152.4 cm; Wt 78.2 kg
[~2024-06-04 17:30] MED LIST changes: +Ondansetron4 MG PO
[2024-06-04 17:58] VITALS: BP 121/78
[2024-06-04] MEDS ORDERED: Albuterol Sulfate 2.5 MG/3 ML VIAL NEB ONE (18:05)
[2024-06-04 18:13] LABS: BASO % 0.3 % (0.0-1.0); EOS # 0.3 10*3/uL (0.0-0.4); EOS % 2.3 % (1.0-4.0); HEMATOCRIT 45.3 % (42.0-52.0); LYMPH # 1.8 10*3/uL (1.3-4.4); LYMPH % 15.8 % (27.0-41.0); MEAN CELL VOLUME 92.6 fl (80.0-94.0); MEAN CORPUSCULAR HGB 31.1 pg (27.0-31.0); MEAN CORPUSCULAR HGB CONC 33.6 g/dl (33.0-37.0); MEAN PLATELET VOLUME 10.4 fl (9.6-12.3); MONO # 0.7 10*3/uL (0.1-1.0); MONO % 6.6 % (3.0-9.0); NEUT # 8.3 10*3/uL (2.3-7.9); NEUT % 74.8 % (47.0-73.0); PLATELET COUNT AUTOMATED 162 10*3/uL (130-400); RED BLOOD COUNT 4.89 10*6/uL (4.50-5.90); RED CELL DISTRI WIDTH 11.5 % (0-14.5); WHITE BLOOD COUNT 11.1 10*3/uL (4.8-10.8)
[2024-06-04 18:28] LABS: BUN 11 mg/dl (9-23); CHLORIDE 106 mmol/L (98-107); POTASSIUM 3.8 mmol/L (3.4-5.1)
[2024-06-04] MEDS ORDERED: AVPAK AZITHROM250 M1 PO (18:38)
[2024-06-04] MEDS ORDERED: VENT7GM INH (18:38)
== END 2024-06-04 18:40 | disposition home or self-care (01) ==
LOC: ED 17:30
PROVIDERS: Emergency Medicine
DX: J40 Bronchitis, not specified as acute or chronic (principal); F41.9 Anxiety disorder, unspecified; I10 Essential (primary) hypertension; F12.10 Cannabis abuse, uncomplicated; K21.9 Gastro-esophageal reflux disease without esophagitis; F90.9 Attention-deficit hyperactivity disorder, unspecified type; F17.290 Nicotine dependence, other tobacco product, uncomplicated; Z90.49 Acquired absence of other specified parts of digestive tract

== ENCOUNTER 2024-12-19 15:13 | Emergency (ER) | payer MEDICAID ==
[~2024-12-19] VITALS: Ht 180.3 cm; Wt 90.7 kg
[~2024-12-19 15:13] MED LIST changes: +AVPAK AZITHROM250 M1 PO; +VENT7GM INH
[2024-12-19 15:26] VITALS: BP 97/54
[2024-12-19] MEDS ORDERED: SODIUM CHLORIDE 0.9% 1,000 ML IV ONE (15:30)
[2024-12-19 15:34] LABS: BASO % 0.5 % (0.0-1.0); EOS # 0.1 10*3/uL (0.0-0.4); EOS % 1.1 % (1.0-4.0); HEMATOCRIT 43.7 % (42.0-52.0); MEAN CELL VOLUME 90.1 fl (80.0-94.0); MEAN CORPUSCULAR HGB 31.1 pg (27.0-31.0); MEAN CORPUSCULAR HGB CONC 34.6 g/dl (33.0-37.0); MEAN PLATELET VOLUME 10.9 fl (9.6-12.3); MONO # 0.4 10*3/uL (0.1-1.0); MONO % 5.6 % (3.0-9.0); NEUT # 4.4 10*3/uL (2.3-7.9); NEUT % 67.1 % (47.0-73.0); PLATELET COUNT AUTOMATED 162 10*3/uL (130-400); RED BLOOD COUNT 4.85 10*6/uL (4.50-5.90); RED CELL DISTRI WIDTH 11.8 % (0-14.5); WHITE BLOOD COUNT 6.5 10*3/uL (4.8-10.8)
[2024-12-19 15:48] LABS: BUN 11 mg/dl (9-23); CHLORIDE 104 mmol/L (98-107); POTASSIUM 3.7 mmol/L (3.4-5.1)
== END 2024-12-19 17:31 | disposition home or self-care (01) ==
LOC: ED 15:13
PROVIDERS: Internal Medicine
DX: E86.0 Dehydration (principal); R06.02 Shortness of breath; R42 Dizziness and giddiness; F17.200 Nicotine dependence, unspecified, uncomplicated; Z79.899 Other long term (current) drug therapy; Z90.49 Acquired absence of other specified parts of digestive tract

== ENCOUNTER 2025-01-08 13:31 | Emergency (ER) | payer MEDICAID ==
[~2025-01-08] VITALS: Ht 180.3 cm; Wt 72.6 kg
[2025-01-08 14:05] VITALS: BP 115/67
[2025-01-08] MEDS ORDERED: SILVER SULFADIAZINE 25 GM TUBE T ONE (14:40)
[2025-01-08] MEDS ORDERED: Ketorolac Tromethamine 30 MG/ML VIAL IM ONE (14:40)
[2025-01-08] MEDS ORDERED: CEPHALEXIN500 M1 PO (14:42)
[2025-01-08] MEDS ORDERED: SILVADENE20 GM T (14:42)
== END 2025-01-08 18:58 | disposition home or self-care (01) ==
LOC: ED 13:31
DX: T22.222A Burn of second degree of left elbow, initial encounter (principal); F41.9 Anxiety disorder, unspecified; X16.XXXA Contact with hot heating appliances, radiators and pipes, initial encounter; Y93.89 Activity, other specified; Y92.89 Other specified places as the place of occurrence of the external cause; Y99.8 Other external cause status

== ENCOUNTER → 2025-01-13 | Outpatient (CLI) | payer MEDICAID ==
[~2025-01-13] MED LIST changes: +CEPHALEXIN500 M1 PO; +SILVADENE20 GM T
[2025-01-13 12:25] LABS: HEMATOCRIT 41.7 % (42.0-52.0); MEAN CELL VOLUME 90.8 fl (80.0-94.0); MEAN CORPUSCULAR HGB 30.7 pg (27.0-31.0); MEAN CORPUSCULAR HGB CONC 33.8 g/dl (33.0-37.0); MEAN PLATELET VOLUME 10.6 fl (9.6-12.3); RED BLOOD COUNT 4.59 10*6/uL (4.50-5.90); RED CELL DISTRI WIDTH 11.9 % (0-14.5); WHITE BLOOD COUNT 5.9 10*3/uL (4.8-10.8)
[2025-01-13 13:09] LABS: ALKALINE PHOSPHATASE 75 U/L (46-116); BUN 12 mg/dl (9-23); CHLORIDE 108 mmol/L (98-107); CHOLESTEROL 127 mg/dL (<200); LDL CHOLESTEROL 71 mg/dL (9-159); POTASSIUM 3.6 mmol/L (3.4-5.1); SGPT/ALT 14 U/L (5-49); TOTAL PROTEIN 6.6 gm/dL (6.0-8.0); TRIGLYCERIDES 60 mg/dl (<150)
== END | disposition home or self-care (01) ==
LOC: LAB 12:11
PROVIDERS: ATTEND Family Medicine
DX: Z13.220 Encounter for screening for lipoid disorders (principal); Z00.00 Encounter for general adult medical examination without abnormal findings; E55.9 Vitamin D deficiency, unspecified; R53.83 Other fatigue; L03.114 Cellulitis of left upper limb

== ENCOUNTER 2025-02-22 07:07 | Emergency (ER) | payer MEDICAID ==
[~2025-02-22] VITALS: Ht 180.3 cm; Wt 72.6 kg
[2025-02-22 07:17] VITALS: BP 115/64
== END 2025-02-22 07:45 | disposition home or self-care (01) ==
LOC: ED 07:07
DX: T23.101A Burn of first degree of right hand, unspecified site, initial encounter (principal); K21.9 Gastro-esophageal reflux disease without esophagitis; F41.9 Anxiety disorder, unspecified; F32.A Depression, unspecified; F17.200 Nicotine dependence, unspecified, uncomplicated; Z79.899 Other long term (current) drug therapy; Z90.49 Acquired absence of other specified parts of digestive tract; X17.XXXA Contact with hot engines, machinery and tools, initial encounter; Y93.89 Activity, other specified; Y92.89 Other specified places as the place of occurrence of the external cause; Y99.8 Other external cause status

== ENCOUNTER → 2025-02-24 | Outpatient (CLI) | payer MEDICAID | END | disposition home or self-care (01) | LOC: WOUNDCARE 08:16 | PROVIDERS: ATTEND Nurse Practitioner Family | DX: T23.041A Burn of unspecified degree of multiple right fingers (nail), including thumb, initial encounter (principal); T31.0 Burns involving less than 10% of body surface; L53.9 Erythematous condition, unspecified; F17.210 Nicotine dependence, cigarettes, uncomplicated; Z90.49 Acquired absence of other specified parts of digestive tract; Z79.899 Other long term (current) drug therapy; X08.8XXA Exposure to other specified smoke, fire and flames, initial encounter; Y93.89 Activity, other specified; Y92.89 Other specified places as the place of occurrence of the external cause; Y99.8 Other external cause status ==

== ENCOUNTER 2025-06-28 15:29 | Emergency (ER) | payer MEDICAID ==
[~2025-06-28] VITALS: Ht 180.3 cm; Wt 72.6 kg
[2025-06-28 15:50] VITALS: BP 122/62
[2025-06-28] MEDS ORDERED: NEURONTIN300 MG PO (15:51)
[2025-06-28] MEDS ORDERED: SELENIUM SULFI180 M2 T (16:21)
[2025-06-28] MEDS ORDERED: AMOXICILLIN500 M3 PO (16:21)
== END 2025-06-28 16:34 | disposition home or self-care (01) ==
LOC: ED 15:29
DX: B36.0 Pityriasis versicolor (principal); K13.0 Diseases of lips; F41.9 Anxiety disorder, unspecified; F17.200 Nicotine dependence, unspecified, uncomplicated; Z79.899 Other long term (current) drug therapy; Z90.49 Acquired absence of other specified parts of digestive tract

== ENCOUNTER 2025-08-21 21:49 | Emergency (ER) | payer MEDICAID ==
[~2025-08-21] VITALS: Ht 180.3 cm; Wt 72.6 kg
[~2025-08-21 21:49] MED LIST changes: +AMOXICILLIN500 M3 PO; +SELENIUM SULFI180 M2 T
[2025-08-21 22:07] VITALS: BP 120/59
[2025-08-21] MEDS ORDERED: VIBRAMYCIN100 MG PO (22:09)
[2025-08-21] MEDS ORDERED: Bacitracin Zinc 14 GM TUBE T ONE (22:15)
== END 2025-08-21 22:19 | disposition home or self-care (01) ==
LOC: ED 21:49
DX: L02.01 Cutaneous abscess of face (principal); F17.200 Nicotine dependence, unspecified, uncomplicated; Z79.899 Other long term (current) drug therapy; Z90.49 Acquired absence of other specified parts of digestive tract

== ENCOUNTER 2025-08-27 14:29 | Emergency (ER) | payer MEDICAID ==
[~2025-08-27] VITALS: Wt 72.6 kg
[2025-08-27 14:39] VITALS: BP 122/63
[2025-08-27 15:01] LABS: BASO # 0.0 10*3/uL (0.0-0.1); BASO % 0.6 % (0.0-1.0); EOS # 0.2 10*3/uL (0.0-0.4); EOS % 2.9 % (1.0-4.0); MEAN CELL VOLUME 92.6 fl (80.0-94.0); MEAN CORPUSCULAR HGB 31.6 pg (27.0-31.0); MEAN PLATELET VOLUME 10.9 fl (9.6-12.3); MONO # 0.6 10*3/uL (0.1-1.0); MONO % 7.7 % (3.0-9.0); NEUT # 4.2 10*3/uL (2.3-7.9); NEUT % 57.6 % (47.0-73.0); NUCLEATED RED BLOOD CELL 0.0 % (0.0-0.0); NUCLEATED RED BLOOD CELL 0.0 10*3/uL (0.0-0.0); PLATELET COUNT AUTOMATED 153 10*3/uL (130-400); RED CELL DISTRI WIDTH 11.6 % (0-14.5)
[2025-08-27 15:22] LABS: BUN 12 mg/dl (9-23)
[2025-08-27] MEDS ORDERED: CLEOCIN HCL300 MG PO (15:38)
[2025-08-27] MEDS ORDERED: CLINDAMYCIN HCL 300 MG CAPSULE PO ONE (15:40)
[2025-08-27] MEDS ORDERED: Bacitracin Zinc 14 GM TUBE T ONE (15:40)
== END 2025-08-27 15:43 | disposition home or self-care (01) ==
LOC: ED 14:29
PROVIDERS: Nurse Practitioner Family
DX: L02.01 Cutaneous abscess of face (principal); F41.9 Anxiety disorder, unspecified; K21.9 Gastro-esophageal reflux disease without esophagitis; F32.A Depression, unspecified; F90.9 Attention-deficit hyperactivity disorder, unspecified type; F17.210 Nicotine dependence, cigarettes, uncomplicated; Z90.49 Acquired absence of other specified parts of digestive tract

== ENCOUNTER 2025-09-05 11:56 | Emergency (ER) | payer MEDICAID ==
[~2025-09-05] VITALS: Ht 180.3 cm; Wt 72.6 kg
[~2025-09-05 11:56] MED LIST changes: +CLEOCIN HCL300 MG PO
[2025-09-05 12:14] VITALS: BP 114/68
[2025-09-05] MEDS ORDERED: Tdap Vaccine 0.5 ML SYR (Adult Vaccine) IM ONE (12:30)
[2025-09-05] MEDS ORDERED: SEPTDS PO (14:02)
[2025-09-05] MEDS ORDERED: Sulfamethoxazole/Trimethopri 1 TAB TAB PO ONE (14:05)
[2025-09-05] MEDS ORDERED: Bacitracin Zinc 14 GM TUBE T ONE (14:05)
== END 2025-09-05 14:15 | disposition home or self-care (01) ==
LOC: ED 11:56
DX: S60.222A Contusion of left hand, initial encounter (principal); S00.81XA Abrasion of other part of head, initial encounter; F90.9 Attention-deficit hyperactivity disorder, unspecified type; F41.9 Anxiety disorder, unspecified; F32.A Depression, unspecified; K21.9 Gastro-esophageal reflux disease without esophagitis; V89.9XXA Person injured in unspecified vehicle accident, initial encounter; Y93.89 Activity, other specified; Y92.89 Other specified places as the place of occurrence of the external cause; Y99.8 Other external cause status